=== PATIENT | female | born 1995 | race Caucasian/White ===

== ENCOUNTER → 2020-08-12 | Outpatient (CLI) | payer BC | LOC: DIA.ED | DX: O24.419 Gestational diabetes mellitus in pregnancy, unspecified control (principal) | CPT/HCPCS: G0108 ==

== ENCOUNTER → 2020-09-01 | Outpatient (CLI) | payer BC | LOC: DIA.ED 09:35 | DX: O24.419 Gestational diabetes mellitus in pregnancy, unspecified control (principal) | CPT/HCPCS: G0108 ==

== ENCOUNTER → 2020-09-22 | Outpatient (CLI) | payer BC | LOC: DIA.ED 08:15 | DX: O24.419 Gestational diabetes mellitus in pregnancy, unspecified control (principal); Z79.4 Long term (current) use of insulin | CPT/HCPCS: G0108 ==

== ENCOUNTER → 2020-10-28 | Outpatient (CLI) | payer BC ==
[~2020-10-28] MED LIST: CALCIUM CARBON650 M2; IBU600 MG PO; LEVEMIR FLEX100 U/ML SQ; PRENATAL TABLET PO
== END ==
LOC: ZCOL.LAB 08:00
DX: Z20.828 Contact with and (suspected) exposure to other viral communicable diseases (principal)

== ENCOUNTER 2020-11-03 06:30 | Inpatient (IN) | payer BC ==
[2020-11-03] VITALS (62 sets, daily range): BP systolic 108–155; BP diastolic 55–113; PULSE 67–109; TEMP 97.7–98.3
[~2020-11-03] VITALS: Ht 165.1 cm; Wt 100.9 kg
[2020-11-03] MEDS ORDERED: CALCIUM CARBON650 M2 (06:34)
[2020-11-03] MEDS ORDERED: PRENATAL TABLET PO (06:35)
[2020-11-03] MEDS ORDERED: LEVEMIR FLEX100 U/ML SQ (06:35)
--- NOTE | 2020-11-03 08:26 | NUR ---
Pt and spouse present ambulatory to unit at 0730 for scheduled induction of labor. Pt changes into gown and positions self in bed. EFM explained and placed. Vitals taken. IV started in left hand at 0748, labs drawn, NS started per orders. Assessment complete. Pt denies leaking of fluid, vaginal bleeding, and contractions, reports good movement. Consents explained and signed. Questions invited and answered, pt denies further needs at this time.
--- NOTE | 2020-11-03 08:49 | NUR ---
Roles on unit to see pt. CODY per provider /. Per provider, check blood sugars every 2hrs, pt may use own meter.
[2020-11-03 09:30] LABS: BASO % 0.2 % (0.0-2.0); EOS # 0.1 (0.0-0.7); GRAN # 5.5 (1.4-6.5); GRAN % 66.3 % (42.2-75.2); LYMPH # 2.1 (1.2-3.4); LYMPH % 25.2 % (20.0-51.0); MEAN CELL VOLUME 86 fl (80.0-100.0); MEAN CORPUSCULAR HEMOGLOBIN 29 pg (27.0-31.0); MEAN CORPUSCULAR HGB CONC 33 g/dl (33.0-37.0); MEAN PLATELET VOLUME 10.7 fl (7.4-10.4); MONO # 0.6 (0.1-0.6); MONO % 6.8 % (1.7-9.3); PLATELET COUNT 357 K/mm3 (130-400); REDCELL DISTRIBUTION WIDTH-CV 13.7 % (11.5-14.5)
[2020-11-03 09:33] LABS: HEMATOCRIT 36.3 % (37.0-47.0)
--- NOTE | 2020-11-03 10:25 | NUR ---
Pt blood sugar per own monitor 84
--- NOTE | 2020-11-03 11:08 | NUR ---
Subtle decels noted following contractions at 1050 and 1052. Pt sitting on ball, moved to bed. SVE unchanged at 2/-2. Pt remains in bed in semi-fowlers position.
--- NOTE | 2020-11-03 12:20 | NUR ---
Pt blood glucose 79
--- NOTE | 2020-11-03 12:40 | NUR ---
Dr. Cortez to pt bedside, reviewed FHR and contraction pattern. Updated on pitocin level, and previous check. SVE per physician -/-2. SROM at this time, clear fluid noted. Per physician, pt to have snack to keep blood sugars up, may increase Pitocin to 30mu/ml/hr.
--- NOTE | 2020-11-03 14:07 | NUR ---
[id number]: Recurrent late decelerations, decreasing 15bpm from baseline and lasting 15-20 seconds. Pt repositioned WL, FHR tracing improved.
--- NOTE | 2020-11-03 15:34 | NUR ---
[id number]: FHR baseline indeterminate. Mother repositioned self, difficulty tracing baby in this position. RN at bedside throughout, Calley RN also in to assist with FHT. FHR audible more than traced, with FHR 120s-140s.
--- NOTE | 2020-11-03 15:36 | NUR ---
1525 - Pt blood glucose 79. Pt given snack of saltine crackers per her request.
--- NOTE | 2020-11-03 17:46 | NUR ---
Pt blood sugar 94
--- NOTE | 2020-11-03 18:14 | NUR ---
172 - Dr. Cortez to pt bedside, reviews and evaluates FHR tracing and contraction pattern. SVE per provider 3-/-2. IUPC placed at [address] Cortez. Physician remains on unit to monitor contractions via IUPC. 1744 - Per Dr. Cortez, contractions adequate per IUPC tracing, continue pitocin at 30mu/ml/hr at this time.
--- NOTE | 2020-11-03 19:30 | NUR ---
1930 BLOOD SUGAR 89 PER PTS GLUCOMETER
--- NOTE | 2020-11-03 19:40 | NUR ---
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 TEST DOSE GIVEN AT 1946. SEE ANESTHSIA RECORD FOR MORE INFORMATION.
--- NOTE | 2020-11-03 20:15 | NUR ---
2015 C/O PAIN IN LEFT SIDE. TURNED TO LEFT LATERAL WITH IMMEDIATE RELIEF.
--- NOTE | 2020-11-03 21:30 | NUR ---
2130 BLOOD SUGAR 95 PER PT GLUCOMETER
[2020-11-04] VITALS (16 sets, daily range): BP systolic 116–166; BP diastolic 60–118; PULSE 80–155; TEMP 97.7–98.7
--- NOTE | 2020-11-04 01:30 | NUR ---
0130 ROLES HERE. READIED FOR DELIVERY 0142 REMAINS IN LR5 AFTER DEL VIABLE FEMALE OVER 2ND DEGREE LACERATION. IV FLUIDS CONT TO INFUSE.
--- NOTE | 2020-11-04 01:53 | NUR ---
0153 METHERGINE 0.2 MG IM GIVEN. 0200 SITTING UP. SM EMESIS.
--- NOTE | 2020-11-04 02:45 | NUR ---
0245 300CC EMESIS. ZOFRAN 4 MG IVP GIVEN.
--- NOTE | 2020-11-04 03:45 | NUR ---
0345 IV TO INT. EPID CATH DCD. CAN MOVE LEFT LEG BUT RIGHT LEG STILL A LITTLE NUMB. PERICARE DONE IN BED. NO URGE TO VOID. TRANSFERRED TO W/C AND TO 208. JASON MOVE WELL. MOTRIN 600MG PO GIVEN FOR BACK PAIN.
--- NOTE | 2020-11-04 09:47 | NUR ---
Initial visit attempt; Mom in nursery, Derrick Engineer left card of congratulations and God's blessings along with information regarding the availability of spiritual care at our hospital.
[2020-11-05 08:30] VITALS: BP 113/69; PULSE 92; TEMP 97.7
[2020-11-05 17:35] VITALS: BP 131/80; PULSE 105; TEMP 97.5
[2020-11-05 21:00] VITALS: BP 123/53; PULSE 108; TEMP 97.8
[2020-11-06 08:30] VITALS: BP 144/78; PULSE 91
[2020-11-06] MEDS ORDERED: IBU600 MG PO (08:58)
== END 2020-11-06 20:00 | disposition home or self-care (01) | DRG 807 ==
LOC: OB 06:30 → LDR 07:18 → OB 07:18
PROVIDERS: ADMIT Obstetrics & Gynecology
PROC: 10E0XZZ Delivery of Products of Conception, External Approach (ICD-10-PCS; principal; 2020-11-03)
PROC: 10907ZC Drainage of Amniotic Fluid, Therapeutic from Products of Conception, Via Natural or Artificial Opening (ICD-10-PCS; 2020-11-03)
PROC: 3E033VJ Introduction of Other Hormone into Peripheral Vein, Percutaneous Approach (ICD-10-PCS; 2020-11-03)
DX: O24.424 Gestational diabetes mellitus in childbirth, insulin controlled (principal); Z37.0 Single live birth; O70.1 Second degree perineal laceration during delivery; Z3A.40 40 weeks gestation of pregnancy
CPT/HCPCS: J2210; J2405; J2590; J7030